=== PATIENT | male | born 1990 | race Caucasian/White ===

== ENCOUNTER 2017-10-12 13:26 | Emergency (ER) | payer BC ==
[2017-10-12] MEDS ORDERED: Cyclobenzaprine 10 MG Tab PO ONE ×2 (14:00→14:24)
[2017-10-12] MEDS ORDERED: Ketorolac 60 MG/2 ML SDV IM ONE (14:00)
--- NOTE | 2017-10-12 14:14 | EDM.PDOC ---
ED HPI GENERAL MEDICAL PROBLEM - General Chief Complaint: Back Pain or Injury Stated Complaint: BACK PAIN Time Seen by Provider: 10/12/17 13:47 Source of Information: Reports: Patient History Limitations: Reports: No Limitations - History of Present Illness INITIAL COMMENTS - FREE TEXT/NARRATIVE: Patient presents with pain in low back worse on the left and going down left leg to knee. This started about 36 hours ago when he twisted wrong. He had something similar to this about 4 years ago after no known injury that lasted about a day then resolved. Today he could hardly get out of bed. Yesterday he took 3 Ibuprofen and 3 Tylenol without help. He hasn't taken anything today. He denies any ulcer or kidney problems. 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 [No Known Home Meds] 10/12/17 [History] ED ROS GENERAL - Review of Systems Review Of Systems: See Below Constitutional: Denies: Fever, Malaise, Weakness HEENT: Reports: No Symptoms Respiratory: Reports: No Symptoms. Denies: Shortness of Breath Cardiovascular: Reports: No Symptoms. Denies: Chest Pain Endocrine: Reports: No Symptoms GI/Abdominal: Reports: No Symptoms : Reports: No Symptoms Musculoskeletal: Reports: Back Pain. Denies: Neck Pain, Shoulder Pain, Arm Pain Skin: Reports: No Symptoms Neurological: Reports: Tingling (with the pain down left leg to knee). Denies: Numbness, Seizure, Syncope, Weakness Psychiatric: Denies: Agitation, Anxiety, Confusion ED EXAM,LOWER BACK PAIN/INJURY - Physical Exam Exam: See Below Exam Limited By: No Limitations General Appearance: Alert, WD/WN, No Apparent Distress Eye Exam: Bilateral Eye: EOMI, Normal Inspection, PERRL Ears: Normal External Exam, Hearing Grossly Normal Nose: Normal Inspection, No Blood Throat/Mouth: Normal Inspection, Normal Lips, Normal Voice, No Airway Compromise Head: Atraumatic, Normocephalic Neck: Normal Inspection, Non-Tender, Full Range of Motion Respiratory/Chest: No Respiratory Distress, Lungs Clear, Normal Breath Sounds, No Accessory Muscle Use Cardiovascular: Regular Rate, Rhythm, No Murmur, No Rub Back Exam: Paraspinal Tenderness (left paraspinal along lower lumbar spine is tight and tender; this is the most tender area per patient.), Vertebral Tenderness (lower lumbar) Extremities: Limited Range of Motion (straight leg raise produces low back pain at 10-15 degrees bilat with AROM and PROM. ) Neurological: Alert, Normal Mood/Affect, Normal Dorsiflexion, Normal Plantar Flexion, No Motor/Sensory Deficits, Oriented x 3 Psychiatric: Normal Affect, Normal Mood Skin Exam: Warm, Dry, Intact, Normal Color, No Rash Course - Vital Signs Last Recorded V/S: Last Vital Signs Temp 98.6 F 10/12/17 13:32 Pulse 69 10/12/17 13:32 Resp 16 10/12/17 13:32 BP 135/81 10/12/17 13:32 Pulse Ox 98 10/12/17 13:32 - Orders/Labs/Meds Orders: Active Orders 24 hr Category Date Time Status Lumbar Spine 2 or 3V [CR] Stat Exams 10/12/17 13:31 Ordered Meds: Medications Discontinued Medications Generic Name Dose Route Start Last Admin Trade Name Andrew PRN Reason Stop Dose Admin Cyclobenzaprine HCl 10 mg 10/12/17 14:00 Flexeril PO 10/12/17 14:01 ONETIME ONE Ketorolac Tromethamine 60 mg 10/12/17 14:00 Toradol IM 10/12/17 14:01 ONETIME ONE - Re-Assessments/Exams Free Text/Narrative Re-Assessment/Exam: 10/12/17 14:28 Xrays show no fracture but some mild to moderate lower lumbar spondylosis. Discussed findings and recommendations with patient. Toradol and Flexeril are administered in ER and a few send home with him to cover until pharmacy opens tomorrow for Rx fill. Patient discharged to home in stable condition. Departure - Departure Time of Disposition: 14:19 Disposition: Home, Self-Care 01 Condition: Good Clinical Impression: Low back pain of thoracolumbar region with sciatica - Discharge Information Instructions: Back Pain, Adult, [id number], Muscle Strain, [id number], Sciatica Referrals: Ammy Isabel, [employer] [Primary Care Provider] - Additional Instructions: 1. Take the medications as directed. 2. Try the exercises as I showed you when you can tolerate them. 3. Follow up tomorrow if possible, otherwise in 2-3 days, with your PCP for evaluation. I think you would benefit from some physical therapy. If that doesn't help you will likely need an MRI. - My Orders Last 24 Hours: My Active Orders 10/12/17 13:31 Lumbar Spine 2 or 3V [CR] Stat - Assessment/Plan Last 24 Hours: My Active Orders 10/12/17 13:31 Lumbar Spine 2 or 3V [CR] Stat
[2017-10-12] MEDS ORDERED: Ketorolac 10 MG Tab PO ONE (14:23)
== END 2017-10-12 14:38 | disposition home or self-care (01) ==
LOC: KA.ED 13:26
DX: M54.42 Lumbago with sciatica, left side (principal)
CPT/HCPCS: 72100; 96372; 99283; A9270; J1885